=== PATIENT | female | born 1985 | race Caucasian/White ===

== ENCOUNTER 2017-01-28 18:29 | Emergency (ER) | payer OTHER ==
[2017-01-28 18:35] VITALS: BP 153/100; PULSE 128; TEMP 98.4; BMI 32.5
--- NOTE | 2017-01-28 19:40 | PDOC ---
"History of Present Illness - General Chief Complaint: Pain Stated Complaint: ABD PAIN Time Seen by Provider: 01/28/17 19:08 History Source: Patient Exam Limitations: No Limitations - History of Present Illness Travel History: No Initial Comments: 01/28/17 19:50 31yo Female patient presents to ED c/o Crohn's flare up and pelvic pain. Patient states she was recently seen and treated at [facility] for what she thought was Crohn's flare up, but was told she has Uterine Adenomyosis confirmed by MRI per patient. Patient states she was referred to [facility] at [facility] but the appointment is for February 06, 2017. Patient c/o low grade fever, n/v/d, chest pain, diarrhea, orange vaginal discharge, severe abd and pelvic pain for the past 4 weeks. No change in appetite, eating or drinking habits. LNMP: 01-02-2017. PCP- [facility] Timing/Duration: reports: constant, getting worse Quality: reports: severe, cramping, throbbing Abdominal Pain Onset Location: reports: generalized abdomen, other (Pelvic Pain) Pain Radiation: reports: no radiation Activities at Onset: reports: none Treatment Prior to Arrive: worse with: analgesics, antacids, cold pack, heat, laxative, enema, other Aggravating Factors: worse with: None, Defecation, Eating, Emotional upset, Exertion, [place], Movement, Voiding, Change in position Alleviating Factors: worse with: None, Belching, Shallow Breathing, Defecation, Eating, Holding Breath, Passing Gas, Change in Position, Rest, Voiding, Vomiting Past History - Travel Traveled outside of the country in the last 30 days: No Close contact w/someone who was outside of country & ill: No - Past Medical History Allergies/Adverse Reactions: Allergies Allergy/AdvReac Type Severity Reaction Status Date / Time ciprofloxacin Allergy Hives Verified 01/28/17 18:34 ketorolac tromethamine Allergy palpitation Verified 01/28/17 18:34 [From Toradol] s sumatriptan [From Imitrex] Allergy Difficulty Verified 01/28/17 18:34 Breathing sumatriptan succinate Allergy Difficulty Verified 01/28/17 18:34 [From Imitrex] Breathing flurbiprofen [From Ansaid] AdvReac Verified 01/28/17 18:35 ibuprofen [From Motrin] AdvReac due to Verified 01/28/17 18:34 crohn's disease Home Medications: Ambulatory Orders Metoclopramide HCl [Reglan -] 0 mg PO HS 08/19/16 Venlafaxine HCl [Effexor -] 0 mg PO HS 08/19/16 GI Disorders: Yes (crohns disease, COLITIS, DIVERTICULITIS) Disorders: Yes (ovarian cyst, ADENOMYOSIS) Thyroid Disease: No - Reproductive History (#): 6 Para: 2 Therapeutic (s) & number: No Spontaneous : 4 - Immunization History Immunization Up to Date: Yes - Psycho/Social/Smoking Cessation Hx Anxiety: No Suicidal Ideation: No Smoking Status: No Smoking History: Never smoked Have you smoked in the past 12 months: No Number of Cigarettes Smoked Daily: 0 Hx Alcohol Use: Yes (SOCIAL) Drug/Substance Use Hx: No Substance Use Type: None Abd/GI Specific PMHX - Complaint Specific PMHX Colitis: Yes Diverticulitis: Yes Gall Bladder Disease: No GERD: No Hepatitis: No Irritable Bowel Synd (IBS): No Pancreatitis: No GI Ulcer Disease: No Review of Systems - Review of Systems Able to Perform ROS?: Yes Is the patient limited Irish proficient: No Constitutional: Yes: Fever. No: Chills, Malaise Respiratory: No: Cough, Shortness of Breath, Stridor, Wheezing Cardiac (ROS): Yes: Chest Pain. No: Lightheadedness, Palpitations, Syncope, Chest Tightness ABD/GI: Yes: Diarrhea, Nausea, Vomiting, Abdominal cramping. No: Constipated, Poor Appetite, Poor Fluid Intake, Rectal Bleeding : Yes: Discharge. No: Burning, Dysuria, Flank Pain, Hematuria Musculoskeletal: No: Back Pain Integumentary: No: Bruising, Erythema, Rash, Sweating Neurological: No: Headache, Seizure, Ataxia, Dizziness All Other Systems: Reviewed and Negative *Physical Exam - Vital Signs Last Vital Signs Temp Pulse Resp BP Pulse Ox 98.4 F 128 H 20 153/100 97 01/28/17 18:31 01/28/17 18:31 01/28/17 18:31 01/28/17 18:31 01/28/17 18:31 - Physical Exam General Appearance: Yes: Nourished, Appropriately Dressed, Apparent Distress, Moderate Distress. No: Mild Distress, Severe Distress Neck: positive: Trachea midline, Supple. negative: Stridor, Lymphadenopathy (R) , Lymphadenopathy (L) Respiratory/Chest: positive: Lungs Clear, Normal Breath Sounds. negative: Respiratory Distress, Accessory Muscle Use, Labored Respiration, Rapid RR, Stridor, Wheezing Cardiovascular: positive: Regular Rhythm, Regular Rate. negative: Edema, JVD, Murmur Gastrointestinal/Abdominal: positive: Tender, Soft, Decreased BS, Guarding, Tenderness (Generalized abd pain). negative: Distended, Rebound Musculoskeletal: positive: Normal Inspection. negative: CVA Tenderness Extremity: positive: Normal Capillary Refill, Normal Inspection, Normal Range of Motion. negative: Pedal Edema, Swelling, Calf Tenderness, Erythema, Inflammation Integumentary: positive: Normal Color, Dry, Warm. negative: Swelling Neurologic: positive: wood crafter II-XII NML intact, Fully Oriented, Alert, Normal Mood/ Affect, Normal Response, Motor Strength 02/24 ED Treatment Course - LABORATORY CBC & Chemistry Diagram: 01/28/17 17:26 01/28/17 22:11 Progress Note - Progress Note Progress Note: Home My Content Print Search Help logo Welcome Willy Sanchez Update Personal Info | FAQ | Help | Search Results Help Please direct any questions regarding prescription data displayed on the [facility] to the dispensing pharmacy (Click - Show Extended View). The dispenser is the source of all data presented. Only the dispenser can confirm or modify the data reported to, and displayed on, the [facility] Registry. Patient Search Multi-Patient Search Reports Drug Listing Designation My MATHEW Numbers Data Detail Level: Printer-Friendly View | Show Extended View Confidential Drug Utilization Report Search Terms: Keisha Nicole, 1985 Search Date: 01/28/2017 07:40: 03 PM The Drug Utilization Report below displays all of the controlled substance prescriptions, if any, that your patient has filled in the last twelve months. The information displayed on this report is compiled from pharmacy submissions to the Department, and accurately reflects the information as submitted by the pharmacies. This report was requested by: Willy Sanchez | Reference #: [id number] Others' Prescriptions Patient Name: Keisha Nicole Date: 1985 Address: [address] [place] [place], [place] [address] [place] [address] Sex: Female Rx Written Rx Dispensed Drug Quantity Days Supply Prescriber Name 01/11/2017 01/11/2017 oxycodone-acetaminophen 7.5-325 mg tab 60 30 Bonita Mccain (MAINTAINER OPERATOR) 12/26/2016 12/26/2016 oxycodone hcl 5 mg tablet 30 15 Bonita Mccain ( MAINTAINER OPERATOR) 12/14/2016 12/14/2016 oxycodone-acetaminophen 7.5-325 mg tab 60 30 Bonita Mccain (MAINTAINER OPERATOR) 11/26/2016 11/26/2016 oxycodone-acetaminophen 5-325 mg tab 15 4 Sandor Safal 10/19/2016 10/19/2016 oxycodone-acetaminophen 7.5-325 mg tab 60 30 Bonita Mccain (MAINTAINER OPERATOR) 08/25/2016 08/25/2016 oxycodone-acetaminophen 5-325 mg tab 12 4 Negritoluisa Cydney 07/09/2016 07/09/2016 oxycodone-acetaminophen 7.5-325 mg tab 28 7 Ceci Triana MD 06/04/2016 06/04/2016 oxycodone-acetaminophen 7.5-325 mg tab 16 4 Audrey Last) 04/19/2016 05/07/2016 oxycodone-acetaminophen 7.5-325 mg tab 16 4 Sara Hannon 03/18/2016 03/18/2016 oxycodone-acetaminophen 7.5-325 mg tab 20 5 Audrey Last) 02/28/2016 02/28/2016 hydrocodone-acetaminophen 5-325 tablet 18 6 Joey Haddad MD 02/16/2016 02/16/2016 oxycodone-acetaminophen 5-325 mg tab 10 3 Cynthia Pardo MD 02/08/2016 02/08/2016 oxycodone-acetaminophen 7.5-325 mg tab 20 5 Kari De Santiago () * - Drugs marked with an asterisk are compound drugs. If the compound drug is made up of more than one controlled substance, then each controlled substance will be a separate row in the table. Search Other States To report suspicious activity related to controlled substances, please click here and provide any relevant information. To send questions or comments about this report to the [place] [employer], please click here or call (Option 1). For information regarding substance abuse rehabilitation treatment, please visit www.[place].gov or call . Medical Decision Making - Medical Decision Making 01/28/17 20:01 cbc, cmp, C-reactive protein, urinalysis, urine preg, amylase, lipase. IVF, Zofran, Solumedrol, NS-1000 0.9%, Morphine. Transvaginal US---> Re-evaluate--->CT Abd pelvis w oral and IV contrast. A definitive diagnosis of adenomyosis can only be made from histological examination of a hysterectomy specimen. The preoperative diagnosis is suggested by characteristic clinical manifestations (ie, menorrhagia and dysmenorrhea with a uniformly enlarged uterus) in the absence of endometriosis or leiomyomas. Both transvaginal ultrasound (TVUS) and magnetic resonance imaging (MRI), especially T2-weighted images, are increasingly used for clinical decision- making. In a review of 23 articles, the sensitivity and specificity of MRI for diagnosing adenomyosis was 77 percent and 89 percent, as compared with 72 percent and 81 percent for ultrasound [41]. Visual evidence for adenomyosis with both modalities includes (1) asymmetric thickening of the myometrium (with the posterior myometrial typically thicker), (2) myometrial cysts, (3) linear striations radiating out from the endometrium, (4) loss of a clear endomyometrial border, and (5) increased myometrial heterogeneity [42]. With MRI , some quantitation of the thickening of the junctional zone is possible with > 12 mm generally considered diagnostic of the disease and <8 mm excluding adenomyosis [42]. *DC/Admit/Observation/Transfer Diagnosis at time of Disposition: Chronic pelvic pain in female Opioid dependence Qualifiers: Substance use status: uncomplicated Qualified Code(s): F11.20 - Opioid dependence, uncomplicated - Discharge Dispostion Disposition: HOME Condition at time of disposition: Improved Admit: No - Patient Instructions Printed Discharge Instructions: DI for Pelvic Pain Additional Instructions: FOLLOW UP WITH YOUR DROP CLIPPER SCHEDULED. ALSO FOLLOW UP WITH YOUR PRIMARY CARE PROVIDER DISCUSSED. TAKE YOUR MEDICATIONS PRESCRIBED. Print Language: JAPANESE"
[2017-01-28] MEDS ORDERED: SODIUM CHLORIDE 1,000 ML IV STA (19:41)
[2017-01-28] MEDS ORDERED: morphine CARPU-JECT 4 MG/1 ML DISP.SYRIN IVPUSH ONE (19:41)
[2017-01-28] MEDS ORDERED: ONDANSETRON 4 MG/2 ML VIAL IVPUSH ONE ×2 (19:41→23:12)
[2017-01-28] MEDS ORDERED: ONDANSETRON 4 MG/2 ML VIAL ONE ×2 (19:58→23:19)
[2017-01-28] MEDS ORDERED: morphine CARPU-JECT 4 MG/1 ML DISP.SYRIN ONE ×2 (19:58→23:19)
[2017-01-28] MEDS ORDERED: methylPREDNISolone NA SUCC 125 MG/2 ML VIAL IVPB ONE (20:00)
[2017-01-28 20:34] LABS: BASOPHIL 0.4 % (0-2.0); EOSINOPHIL 0.7 % (0-4.5); MCH 23.1 pg (25.7-33.7); MCHC 31.9 g/dl (32.0-36.0); MEAN CELL VOLUME 72.4 fl (80-96); MEAN PLT VOLUME 10.3 fl (7.5-11.1); NEUTROPHILS 61.9 % (42.8-82.8); PLATELET COUNT 188 K/MM3 (134-434); RDW 18.5 % (11.6-15.6); WHITE BLOOD COUNT 7.8 K/mm3 (4.0-10.0)
[2017-01-28] MEDS ORDERED: methylPREDNISolone NA SUCC 125 MG/2 ML VIAL ONE (21:04)
[2017-01-28 22:37] LABS: URINE APPEARANCE CLEAR; URINE BILIRUBIN NEGATIVE (NEGATIVE); URINE BLOOD NEGATIVE (NEGATIVE); URINE COLOR STRAW; URINE GLUCOSE (UA) NEGATIVE (NEGATIVE); URINE KETONE NEGATIVE (NEGATIVE); URINE NITRITE NEGATIVE (NEGATIVE); URINE PROTEIN NEGATIVE (NEGATIVE); URINE UROBILINOGEN NEGATIVE E.U./dl (0.2-1.0)
[2017-01-28 22:38] LABS: URINE LEUK ESTERASE TRACE (NEGATIVE)
[2017-01-28 22:41] LABS: URINE BACTERIA RARE /hpf (NONE SEEN); URINE MUCUS RARE; URINE RBC <1 /hpf (0-3); URINE WBC 4 /hpf (3-5)
[2017-01-28 22:47] LABS: ALBUMIN 3.3 g/dl (3.4-5.0); ALK PHOS 87 U/L (45-117); ANION GAP 11 (8-16); BILIRUBIN,DIRECT < 0.1 mg/dL (0.0-0.2); BILIRUBIN,TOTAL 0.2 mg/dL (0.2-1.0); CO2 22 mmol/L (21-32); CREATININE 0.7 mg/dL (0.55-1.02); GLUCOSE,RANDOM 102 mg/dL (74-106); SGOT/AST 10 U/L (15-37); SGPT/ALT 17 U/L (12-78); TOT PROT 6.9 g/dl (6.4-8.2)
[2017-01-28] MEDS ORDERED: morphine CARPU-JECT 10 MG/1 ML DISP.SYRIN IVPUSH ONE (23:10)
[2017-01-28] MEDS ORDERED: morphine CARPU-JECT 2 MG/1 ML DISP.SYRIN ONE (23:18)
== END 2017-01-28 23:55 | disposition home or self-care (01) ==
LOC: JER 18:29
PROC: 3E033NZ Introduction of Analgesics, Hypnotics, Sedatives into Peripheral Vein, Percutaneous Approach (ICD-10-PCS; principal; 2017-01-28)
PROC: 3E0333Z Introduction of Anti-inflammatory into Peripheral Vein, Percutaneous Approach (ICD-10-PCS; 2017-01-28)
PROC: 3E033GC Introduction of Other Therapeutic Substance into Peripheral Vein, Percutaneous Approach (ICD-10-PCS; 2017-01-28)
DX: R10.2 Pelvic and perineal pain (principal); G89.29 Other chronic pain; F11.20 Opioid dependence, uncomplicated
CPT/HCPCS: 36415; 76830-TC; 80048; 80076; 81003; 81015; 84703; 85025; 87086; 99285-25